=== PATIENT | male | born 1935 | race Caucasian/White ===

== ENCOUNTER 2018-05-31 09:51 | Inpatient (IN) | payer MEDICARE, OTHER ==
[2018-05-26 12:41] LABS: BASOPHILS % (AUTO) 0.3 % (0-1); EOSINOPHILS # (AUTO) 0.2 X10'3 (0-0.9); EOSINOPHILS % (AUTO) 2.5 % (0-6); LYMPHOCYTES # (AUTO) 0.9 X10'3 (1.1-4.8); LYMPHOCYTES % (AUTO) 10.5 % (21-51); MEAN CORPUSCULAR HEMOGLOBIN 28.6 PG (27.0-31.0); MEAN CORPUSCULAR HGB CONC 33.4 % (33.0-36.5); MEAN CORPUSCULAR VOLUME 85.7 FL (78-98); MEAN PLATELET VOLUME 7.7 FL (7.4-10.4); MONOCYTES # (AUTO) 0.5 X10'3 (0-0.9); NEUTROPHILS # (AUTO) 7.2 X10'3 (1.8-7.7); NEUTROPHILS % (AUTO) 80.7 % (42-75); PRE OP HEMATOCRIT 50.4 % (42.0-52.0); PRE OP HEMOGLOBIN 16.8 g/dL (14.0-17.9); PRE OP PLATELET COUNT 266 X10'3 (140-440); RED BLOOD COUNT 5.88 X10'6 (4.70-6.10); RED CELL DISTRIBUTION WIDTH 15.1 % (11.5-14.5)
[2018-05-26 12:53] LABS: PRE OP PROTIME 10.4 SECONDS (9.0-12.0)
[2018-05-26 12:57] LABS: ALBUMIN 3.7 G/DL (3.4-5.0); ALBUMIN/GLOBULIN RATIO 1.2 (1.1-1.5); ALKALINE PHOSPHATASE 74 IU/L (46-116); BLOOD UREA NITROGEN 22 MG/DL (7-18); BUN/CREATININE RATIO 14.9 (5.4-32.0); CALCIUM 9.2 MG/DL (8.5-10.1); CHLORIDE 103 MMOL/L (99-107); CREATININE 1.48 MG/DL (0.60-1.10); PRE OP ALT 17 U/L (30-65); PRE OP ANION GAP 8 (8-16); PRE OP AST 16 U/L (10-37); PRE OP BILIRUB, TOTAL 0.9 MG/DL (0.0-1.0); PRE OP GLUCOSE 107 MG/DL (70-104); PRE OP POTASSIUM 4.1 MMOL/L (3.4-5.1); PRE OP SODIUM 142 MMOL/L (135-145); TOTAL CARBON DIOXIDE 31.5 MMOL/L (24-32); TOTAL PROTEIN 6.9 G/DL (6.4-8.2); eGFR 46 ML/MIN
[2018-05-26 13:20] LABS: CLARITY,URINE CLOUDY (Clear); COLOR,URINE YELLOW (Yellow); GLUCOSE, URINE NEGATIVE (Neg); KETONES,URINE NEGATIVE (Neg); LEUKOCYTE ESTERASE ,URINE MODERATE (Neg); NITRITES, URINE NEGATIVE (Neg); OCCULT BLOOD,URINE TRACE-LYSED (Neg); PH,URINE 5.5 (4.8-8.0); PROTEIN,URINE TRACE mg/dl (Neg); UA COLLECTION TYPE NON-SPECIFIED; UROBILINOGEN,URINE 0.2 E.U/dL (0.2-1.0)
[2018-05-26 13:42] LABS: SQUAMOUS EPITHELIAL CELL,UR FEW /LPF (FEW)
[2018-05-26 13:43] LABS: BACTERIA,URINE 1+ /HPF (Neg); MUCUS STRANDS MODERATE /LPF (Neg); WBC CLUMPS,URINE MANY /HPF (NEGATIVE)
[2018-05-26 13:44] LABS: RBC,URINE 0-2 /HPF (0-2); WBC,URINE 50-100 /HPF (0-4)
[~2018-05-31] VITALS: Ht 167.6 cm; Wt 104.2 kg
[2018-05-31] VITALS (14 sets, daily range): BP systolic 134–160; BP diastolic 72–86
[~2018-05-31 09:51] MED LIST: ALPR-623 PO; APIX5TAB3 PO; Cefazolin 2GM/50ML dext iso,osmotic IVPB IV ONE; DIGO250T77 PO; DOCUMENT DATE & TIME OF BETA-BLOCKER PO ONE; FLO0.4C PO; HYDR-565 PO; METO-411 PO; SPIR25TA5 PO; famotidine 20mg tablet PO ONE; ringers solution, lacted 1,000 ML IV SCH; vancomycin inj 1,500 MG in normal saline 300ml IV soln IV ONE
[2018-05-31] MEDS ORDERED: ROPIVAcaine 0.5% (5mg/ml) 30ml vial ONE ×2 (13:11→17:21)
[2018-05-31] MEDS ORDERED: vancomycin 1,000mg inj ONE (13:11)
[2018-05-31] MEDS ORDERED: ketorolac trometh. 30mg/ml inj. ONE (13:11)
[2018-05-31] MEDS ORDERED: tetracaine 1% (10mg/ml) pres. free inj. ONE (14:57)
[2018-05-31] MEDS ORDERED: fentaNYL/PF 50MCG/1 ML 2ML syringe ONE (15:01)
[2018-05-31] MEDS ORDERED: MIDAZolam 1mg/ml 10ml vial ONE (15:01)
[2018-05-31] MEDS ORDERED: ringers solution, lacted 1,000 ML IV SCH (16:08)
[2018-05-31] MEDS ORDERED: ondansetron/PF 4mg/2ml inj IV PRN ×2 (16:10→17:40)
[2018-05-31] MEDS ORDERED: proCHLORperazine 10 MG/2 ml inj IV PRN (16:10)
[2018-05-31] MEDS ORDERED: morphine 4 MG/ML inj SYRINge IV PRN ×2 (16:10)
[2018-05-31] MEDS ORDERED: meperidine/PF 25mg/ml syringe IV PRN ×3 (16:10)
[2018-05-31] MEDS ORDERED: propofol inj 20 ML IV ONE (17:04)
[2018-05-31] MEDS ORDERED: HYDROmorphone inj. 0.5 MG/0.5 ML DISP.SYRIN IV PRN ×2 (17:40)
[2018-05-31] MEDS ORDERED: acetaminophen 325mg tablet PO PRN (17:40)
[2018-05-31] MEDS ORDERED: bisacodyl 10mg suppository rectal RC PRN (17:40)
[2018-05-31] MEDS ORDERED: oxyCODONE IR 5mg (immed. release) tablet PO PRN (17:40)
[2018-05-31] MEDS ORDERED: magnesium hydroxide 30ml (MOM) UD suspension PO PRN (17:40)
[2018-05-31] MEDS ORDERED: diphenhydrAMINE 25mg capsule PO PRN ×2 (17:40)
[2018-05-31] MEDS ORDERED: apixaban 5mg tablet PO SCH (20:00)
[2018-05-31] MEDS: ketorolac tromethamine 15mg/ml inj. IV SCH (20:00)
[2018-05-31] MEDS ORDERED: vancomycin/NS 1 GM ADD-VANTAGE 250 ML IV SCH (20:00)
[2018-05-31] MEDS: sennosides 8.6mg tablet PO SCH (21:00)
[2018-05-31] MEDS: gabapentin 300mg capsule PO SCH (21:33)
[2018-05-31] MEDS: ALPRAZolam 0.25mg tablet PO SCH (21:33)
[2018-05-31] MEDS: digoxin 250mcg (0.25mg) tablet PO SCH (21:34)
[2018-05-31] MEDS: acetaminophen 325mg tablet PO SCH (21:38)
[2018-05-31] MEDS: potassium cl 20mEq in 1/2 NS 1,000 ML IV SCH (21:45)
[2018-06-01] MEDS: ceFAZolin 1GM/D5W- ADD-VANTAGE 50 ML IV SCH ×2 (00:50→08:58)
[2018-06-01] MEDS: ketorolac tromethamine 15mg/ml inj. IV SCH (02:00)
[2018-06-01 02:30] VITALS: BP 139/85
[2018-06-01] MEDS: acetaminophen 325mg tablet PO SCH ×4 (02:41→20:16)
[2018-06-01] MEDS: potassium cl 20mEq in 1/2 NS 1,000 ML IV SCH ×3 (02:43→17:37)
[2018-06-01] MEDS: oxyCODONE IR 5mg (immed. release) tablet PO PRN ×4 (03:54→16:41)
[2018-06-01 05:30] LABS: BASOPHILS % (AUTO) 0 % (0-1); EOSINOPHILS # (AUTO) 0.2 X10'3 (0-0.9); EOSINOPHILS % (AUTO) 1.4 % (0-6); HEMATOCRIT 40.9 % (42.0-52.0); HEMOGLOBIN 13.8 g/dl (14.0-17.9); LYMPHOCYTES # (AUTO) 0.5 X10'3 (1.1-4.8); LYMPHOCYTES % (AUTO) 4.4 % (21-51); MEAN CORPUSCULAR HEMOGLOBIN 28.7 PG (27.0-31.0); MEAN CORPUSCULAR HGB CONC 33.8 % (33.0-36.5); MEAN CORPUSCULAR VOLUME 84.8 FL (78-98); MEAN PLATELET VOLUME 7.4 FL (7.4-10.4); MONOCYTES # (AUTO) 0.3 X10'3 (0-0.9); MONOCYTES % (AUTO) 2.6 % (2-12); NEUTROPHILS # (AUTO) 9.6 X10'3 (1.8-7.7); NEUTROPHILS % (AUTO) 91.6 % (42-75); PLATELET COUNT 213 X10'3 (140-440); RED BLOOD COUNT 4.83 X10'6 (4.70-6.10); RED CELL DISTRIBUTION WIDTH 14.7 % (11.5-14.5); WHITE BLOOD COUNT 10.5 X10'3 (4.5-11.0)
[2018-06-01 06:00] VITALS: BP 138/77
[2018-06-01 06:00] LABS: ANION GAP 6 (8-16); CHLORIDE 105 MMOL/L (99-107); POTASSIUM 4.8 MMOL/L (3.5-5.1); SODIUM 136 MMOL/L (135-145); TOTAL CARBON DIOXIDE 25.4 MMOL/L (24-32)
[2018-06-01] MEDS ORDERED: non-formulary drug (Metoprolol Succinate 1 TAB) PO SCH (08:00)
[2018-06-01] MEDS ORDERED: aspirin 325mg tablet PO SCH (08:30)
[2018-06-01] MEDS: spironolactone 25 MG tablet PO SCH (08:39)
[2018-06-01] MEDS: tamsulosin 0.4mg capsule PO SCH (08:39)
[2018-06-01] MEDS: metoprolol succinate 25mg (24-HOUR) SR. Tablet PO SCH (08:40)
[2018-06-01] MEDS: gabapentin 300mg capsule PO SCH ×3 (08:50→20:18)
[2018-06-01] MEDS: apixaban 5mg tablet PO SCH ×2 (08:56→20:16)
[2018-06-01 10:00] VITALS: BP 107/63
[2018-06-01 15:00] VITALS: BP 104/58
[2018-06-01 18:00] VITALS: BP 103/50
[2018-06-01] MEDS: celeCOXIB 100mg capsule PO SCH (20:16)
[2018-06-01] MEDS: ALPRAZolam 0.25mg tablet PO SCH (20:16)
[2018-06-01] MEDS: digoxin 250mcg (0.25mg) tablet PO SCH (20:16)
[2018-06-01] MEDS: sennosides 8.6mg tablet PO SCH (20:18)
[2018-06-01 22:00] VITALS: BP 103/60
[2018-06-02] MEDS: acetaminophen 325mg tablet PO SCH ×2 (02:00→07:23)
[2018-06-02 05:49] LABS: BASOPHILS % (AUTO) 0.4 % (0-1); EOSINOPHILS # (AUTO) 0.3 X10'3 (0-0.9); EOSINOPHILS % (AUTO) 2.8 % (0-6); HEMATOCRIT 35.4 % (42.0-52.0); HEMOGLOBIN 11.8 g/dl (14.0-17.9); LYMPHOCYTES % (AUTO) 10.1 % (21-51); MEAN CORPUSCULAR HEMOGLOBIN 28.7 PG (27.0-31.0); MEAN CORPUSCULAR HGB CONC 33.4 % (33.0-36.5); MEAN CORPUSCULAR VOLUME 85.9 FL (78-98); MEAN PLATELET VOLUME 7.3 FL (7.4-10.4); MONOCYTES # (AUTO) 0.9 X10'3 (0-0.9); MONOCYTES % (AUTO) 8.8 % (2-12); NEUTROPHILS # (AUTO) 7.6 X10'3 (1.8-7.7); NEUTROPHILS % (AUTO) 77.9 % (42-75); PLATELET COUNT 197 X10'3 (140-440); RED BLOOD COUNT 4.12 X10'6 (4.70-6.10); RED CELL DISTRIBUTION WIDTH 14.4 % (11.5-14.5); WHITE BLOOD COUNT 9.8 X10'3 (4.5-11.0)
[2018-06-02 06:00] VITALS: BP 123/64
[2018-06-02] MEDS: celeCOXIB 100mg capsule PO SCH (07:23)
[2018-06-02] MEDS: gabapentin 300mg capsule PO SCH (07:23)
[2018-06-02] MEDS: tamsulosin 0.4mg capsule PO SCH (07:24)
[2018-06-02] MEDS: metoprolol succinate 25mg (24-HOUR) SR. Tablet PO SCH (07:25)
[2018-06-02] MEDS: spironolactone 25 MG tablet PO SCH (07:25)
[2018-06-02] MEDS: apixaban 5mg tablet PO SCH (07:26)
[2018-06-02] MEDS: oxyCODONE IR 5mg (immed. release) tablet PO PRN (07:26)
[2018-06-02] MEDS ORDERED: WALKERFR (08:51)
[2018-06-02 10:00] VITALS: BP 97/60
[2018-06-02] MEDS ORDERED: acetaminophen 325mg tablet PO PRN (17:40)
== END 2018-06-02 11:44 | disposition home health service (06) | DRG 470 ==
LOC: PAS IN 09:51 → EDSTATUS 14:15 → ORTHO 4S 18:44
PROVIDERS: ADMIT Orthopaedic Surgery; ATTEND Orthopaedic Surgery
PROC: 3E0T3BZ Introduction of Anesthetic Agent into Peripheral Nerves and Plexi, Percutaneous Approach (ICD-10-PCS; 2018-05-31)
PROC: 8E0YXBZ Computer Assisted Procedure of Lower Extremity (ICD-10-PCS; 2018-05-31)
PROC: 8E0YXCZ Robotic Assisted Procedure of Lower Extremity (ICD-10-PCS; 2018-05-31)
PROC: 0SRD0J9 Replacement of Left Knee Joint with Synthetic Substitute, Cemented, Open Approach (ICD-10-PCS; principal; 2018-05-31 14:30)
DX: M17.12 Unilateral primary osteoarthritis, left knee (principal); D62 Acute posthemorrhagic anemia; N18.4 Chronic kidney disease, stage 4 (severe); N13.8 Other obstructive and reflux uropathy; F41.9 Anxiety disorder, unspecified; N40.1 Benign prostatic hyperplasia with lower urinary tract symptoms; I48.2 Chronic atrial fibrillation; G89.29 Other chronic pain; E66.9 Obesity, unspecified; Z68.37 Body mass index [BMI] 37.0-37.9, adult; Z79.899 Other long term (current) drug therapy; Z79.01 Long term (current) use of anticoagulants
CPT/HCPCS: 36415; 71046; 80051; 80053; 81001; 85025; 85610; 85730; 86885; 86900; 86901; 87070; 87077; 87088; 97110; 97116; 97161; 97530; A6253; A6455; A7000; C1713; C1758; C1776; J0690; J1885; J2250; J2704; J2795; J3010; J3370; J7030; J7120

== ENCOUNTER 2019-09-15 06:26 | Emergency (ER) | payer MEDICARE, OTHER ==
[~2019-09-15] VITALS: Ht 170.2 cm; Wt 108.6 kg
[~2019-09-15 06:26] MED LIST changes: -Cefazolin 2GM/50ML dext iso,osmotic IVPB IV ONE; -DOCUMENT DATE & TIME OF BETA-BLOCKER PO ONE; +HYDR-4353 PO; -HYDR-565 PO; +WALKERFR; -famotidine 20mg tablet PO ONE; -ringers solution, lacted 1,000 ML IV SCH; -vancomycin inj 1,500 MG in normal saline 300ml IV soln IV ONE
[2019-09-15 07:03] LABS: UA COLLECTION TYPE VOIDED
[2019-09-15 07:04] LABS: CLARITY,URINE BLOODY (Clear); COLOR,URINE RED (Yellow)
[2019-09-15 07:06] LABS: BACTERIA,URINE 1+ /HPF (Neg); MUCUS STRANDS NONE SEEN /LPF (Neg); RBC,URINE TNTC /HPF (0-2); SQUAMOUS EPITHELIAL CELL,UR NONE SEEN /LPF (FEW)
[2019-09-15 07:19] LABS: BASOPHILS # (AUTO) 0.1 X10'3 (0-0.2); BASOPHILS % (AUTO) 0.6 % (0-1); EOSINOPHILS # (AUTO) 0.3 X10'3 (0-0.9); EOSINOPHILS % (AUTO) 3.8 % (0-6); HEMATOCRIT 49.4 % (42.0-52.0); HEMOGLOBIN 16.4 g/dl (14.0-17.9); LYMPHOCYTES % (AUTO) 11.8 % (21-51); MEAN CORPUSCULAR HEMOGLOBIN 28.6 PG (27.0-31.0); MEAN CORPUSCULAR HGB CONC 33.1 g/dL (33.0-36.5); MEAN CORPUSCULAR VOLUME 86.2 FL (78-98); MEAN PLATELET VOLUME 7.1 FL (7.4-10.4); MONOCYTES # (AUTO) 0.7 X10'3 (0-0.9); MONOCYTES % (AUTO) 7.9 % (2-12); NEUTROPHILS # (AUTO) 6.5 X10'3 (1.8-7.7); NEUTROPHILS % (AUTO) 75.9 % (42-75); PLATELET COUNT 252 X10'3 (140-440); RED BLOOD COUNT 5.73 X10'6 (4.70-6.10); RED CELL DISTRIBUTION WIDTH 14.8 % (11.5-14.5); WHITE BLOOD COUNT 8.6 X10'3 (4.5-11.0)
[2019-09-15 07:34] LABS: ALANINE AMINOTRANSFERASE 17 U/L (12-78); ALBUMIN 3.6 G/DL (3.4-5.0); ALBUMIN/GLOBULIN RATIO 1.1 (1.1-1.5); ALKALINE PHOSPHATASE 77 IU/L (46-116); ANION GAP 7 (8-16); ASPARTATE AMINO TRANSFERASE 18 U/L (10-37); BLOOD UREA NITROGEN 17 MG/DL (7-18); BUN/CREATININE RATIO 12.1 (5.4-32.0); CALCIUM 8.7 MG/DL (8.5-10.1); CHLORIDE 106 MMOL/L (99-107); GLUCOSE 118 MG/DL (70-104); POTASSIUM 4.4 MMOL/L (3.5-5.1); SODIUM 142 MMOL/L (135-145); TOTAL CARBON DIOXIDE 29.2 MMOL/L (24-32); TOTAL PROTEIN 6.8 G/DL (6.4-8.2); eGFR 49 ML/MIN
[2019-09-15] MEDS ORDERED: CEPH500C5 PO (07:49)
[2019-09-15 08:06] VITALS: BP 138/84
== END 2019-09-15 08:12 | disposition home or self-care (01) ==
LOC: ER 06:26
DX: N39.0 Urinary tract infection, site not specified (principal); R31.9 Hematuria, unspecified; I48.91 Unspecified atrial fibrillation; I50.9 Heart failure, unspecified; I11.0 Hypertensive heart disease with heart failure; Z98.890 Other specified postprocedural states; Z79.01 Long term (current) use of anticoagulants; Z79.899 Other long term (current) drug therapy; Z79.2 Long term (current) use of antibiotics
CPT/HCPCS: 36415; 80053; 81001; 85025; 87088; 99284

== ENCOUNTER → 2025-08-06 | Day surgery (SDC) | payer OTHER ==
[~2025-08-06] VITALS: Ht 170.2 cm; Wt 112.3 kg
[2025-08-06] VITALS (7 sets, daily range): BP systolic 131–175; BP diastolic 73–106; PULSE 90–103; RESP 10–16; TEMP 97.7; O2SAT 93–95
[~2025-08-06] MED LIST changes: +DIGO250T2 PO; -DIGO250T77 PO; +EMPA25TA PO; +FINA5TAB11 PO; -FLO0.4C PO; +LIDOcaine 1% W/epiNEPHrine 1:100,000 20ml vial ONE; +SACU1TAB7 PO; +TAMS-55 PO; +TROS20TA4 PO; +fentaNYL/PF 50MCG/1 ML 2ML syringe ONE; +midazolam 1 mg/ML 2ml injection ONE; +normal saline 1000ml 1,000 ML IV SCH; +vancomycin 1,000mg inj ONE
--- NOTE | 2025-08-06 07:18 | ELECTROCARDIOGRAPH REPORT ---
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 KATLIN Abbasi Measurements Intervals [place] Rate: 87 P: 0 CA: 0 QRS: -7 QRSD: 104 T: 63 QT: 377 QTc: 454 Interpretive Statements Atrial fibrillation Borderline low voltage, extremity leads Electronically Signed On 08-07-2025 18:49:[address] KATLIN Abbasi Please click the below link to view image of tracing.
[2025-08-06] MEDS: normal saline 1000ml 1,000 ML IV SCH (07:22)
[2025-08-06] MEDS: VANCOMYCIN 1,500MG inj. 1,500 MG in normal saline 500ml IV soln 300 ML IV ONE (07:22)
[2025-08-06 07:26] LABS: MEAN PLATELET VOLUME 7.0 FL (7.4-10.4); RED CELL DISTRIBUTION WIDTH 15.7 % (11.5-14.5)
[2025-08-06 07:30] LABS: CREATININE 1.32 MG/DL (0.60-1.10); INR 1.0 INR; TOTAL CARBON DIOXIDE 26.2 MMOL/L (24-32); eCRCL 37 ML/MIN; eGFR 51 ML/MIN
[2025-08-06] MEDS: ceFAZolin 2gm/dext,iso 50mL 50 ML IV ONE (10:05)
--- NOTE | 2025-08-06 21:07 | CARDIOLOGY REPORT ---
DATE OF SERVICE: 08/06/2025 DICTATING PHYSICIAN: JOSE M BUSTOS DO CARDIAC CATHETERIZATION REPORT REFERRING PHYSICIAN: Yariel Kingston MD, [facility]. CLINICAL HISTORY: This 89-year-old man has had a single chamber pacemaker since 01/2017. He has chronic atrial fibrillation. The generator is now at the elective replacement interval. PROCEDURES PERFORMED: * Removal of existing pacemaker pulse generator. * Pacemaker pocket revision. * Implant of new pacemaker pulse generator. * 45 minutes conscious sedation supervision. PREOPERATIVE DIAGNOSES: * Chronic atrial fibrillation. * Symptomatic bradycardia. POSTOPERATIVE DIAGNOSES: * Chronic atrial fibrillation. * Symptomatic bradycardia. DEVICE REMOVED: Medtronic pulse generator, model number ADSR01 and serial number [id number]. EXISTING ELECTRODES: Medtronic RV electrode, model number 5076 and serial number [id number]. DEVICE IMPLANTED: Medtronic pulse generator, model number W3SR01 and serial number [id number]. DESCRIPTION OF THE PROCEDURE: The patient was sedated with fentanyl and Versed. He was then prepared and draped in the usual manner. The left pectoral region was infiltrated with 1% lidocaine containing a 1:100,000 mixture of epinephrine. The pacemaker pocket was opened by incising along the existing scar line. The pacemaker was exposed. Some of the scarified capsule was excised. The generator was removed. The pocket was enlarged in a mostly inferior direction. The old generator was removed from the electrode and the new one attached to it. The new one and electrode were placed in the pocket. The generator was secured with an 0 Ethibond suture. The pocket was irrigated with a vancomycin antibiotic solution. The subcutaneous layer was closed with 3-0 Vicryl and the skin was approximated with 4-0 Monocryl. Initial verenice parameters were as follows: Mode VVI, LRL 60 ppm, upper activity rate 130 bpm, right ventricular amplitude 3.5 V, pulse width 0.4 ms, sensitivity 0.9 mV. JOSE M BUSTOS DO TID: [id number] RECEIPT: [id number] [facility]
== END | disposition home or self-care (01) ==
LOC: SSTAY O 08-03 08:09
PROVIDERS: ATTEND Internal Medicine Cardiovascular Disease
DX: Z45.010 Encounter for checking and testing of cardiac pacemaker pulse generator [battery] (principal); I48.20 Chronic atrial fibrillation, unspecified; R00.1 Bradycardia, unspecified; I12.9 Hypertensive chronic kidney disease with stage 1 through stage 4 chronic kidney disease, or unspecified chronic kidney disease; N18.9 Chronic kidney disease, unspecified; I42.9 Cardiomyopathy, unspecified; Z87.891 Personal history of nicotine dependence; Z79.01 Long term (current) use of anticoagulants; Z79.899 Other long term (current) drug therapy; Z90.49 Acquired absence of other specified parts of digestive tract; Z90.89 Acquired absence of other organs; Z96.643 Presence of artificial hip joint, bilateral
CPT/HCPCS: 33227; 36415; 80048; 83735; 85025; 85610; 93005; 99152; 99153; C1786; J0690; J2250; J3010; J3373; J3490; J7030; J7040